=== PATIENT | female | born 1945 | race Caucasian/White ===

== ENCOUNTER → 2017-07-12 | Outpatient (CLI) | payer MEDICARE, BC ==
[~2017-07-12] MED LIST: ANTIFUNGAL2% TP; ASPIRIN 81M81 MG/TA2 PO; CALTRATE 600+D1 TAB PO; DUO-KAPS1 CAP PO
== END ==
LOC: MC.RAD 07:11
DX: Z12.31 Encounter for screening mammogram for malignant neoplasm of breast (principal)

== ENCOUNTER → 2019-08-25 | Outpatient (CLI) | payer MEDICARE, BC | LOC: MC.RAD 14:30 | DX: Z12.31 Encounter for screening mammogram for malignant neoplasm of breast (principal) ==

== ENCOUNTER → 2020-08-26 | Outpatient (CLI) | payer MEDICARE, BC | LOC: MC.RAD 07:00 | DX: Z12.31 Encounter for screening mammogram for malignant neoplasm of breast (principal) ==

== ENCOUNTER 2021-08-26 09:28 | Emergency (ER) | payer MEDICARE, BC ==
[~2021-08-26] VITALS: Ht 160 cm; Wt 52.3 kg
[2021-08-26 09:36] VITALS: TEMP 97.8
[2021-08-26 10:43] LABS: BASO # 0.1 (0.0-0.2); BASO % 0.8 % (0.0-2.0); EOS # 0.4 (0.0-0.7); EOS % 7.2 % (0-4.0); GRAN # 4.4 (1.4-6.5); GRAN % 71.6 % (42.2-75.2); HEMOGLOBIN 12.4 g/dl (12.5-16.0); LYMPH # 0.9 (1.2-3.4); LYMPH % 14.4 % (20.0-51.0); MEAN CELL VOLUME 95 fl (80.0-100.0); MEAN CORPUSCULAR HEMOGLOBIN 32 pg (27.0-31.0); MEAN CORPUSCULAR HGB CONC 34 g/dl (33.0-37.0); MEAN PLATELET VOLUME 11.6 fl (7.4-10.4); MONO # 0.4 (0.1-0.6); MONO % 5.7 % (1.7-9.3); PLATELET COUNT 151 K/mm3 (130-400); RED BLOOD COUNT 3.89 M/mm3 (4.10-5.30); REDCELL DISTRIBUTION WIDTH-CV 12.5 % (11.5-14.5)
[2021-08-26 10:44] LABS: HEMATOCRIT 36.9 % (37.0-47.0)
[2021-08-26 10:52] LABS: PROTHROMBIN TIME 11.4 SECONDS (9.7-12.8)
[2021-08-26 10:56] LABS: BILIRUBIN,TOTAL 0.5 mg/dL (0.2-1.2); CALCIUM 9.7 mg/dL (8.4-10.2); CREATININE, serum 0.82 mg/dL (0.57-1.11); POTASSIUM 4.2 mmol/L (3.5-4.5); TOTAL PROTEIN 6.6 gm/dL (6.2-8.1)
[2021-08-26 12:23] VITALS: BP 130/67; PULSE 68
== END 2021-08-26 12:35 | disposition short-term general hospital (02) ==
LOC: COL.ER 09:28
PROVIDERS: Nurse Practitioner Primary Care
DX: S52.502A Unspecified fracture of the lower end of left radius, initial encounter for closed fracture (principal); S06.6X0A Traumatic subarachnoid hemorrhage without loss of consciousness, initial encounter; S00.12XA Contusion of left eyelid and periocular area, initial encounter; W01.198A Fall on same level from slipping, tripping and stumbling with subsequent striking against other object, initial encounter; Y93.01 Activity, walking, marching and hiking

== ENCOUNTER → 2021-12-06 | Outpatient (CLI) | payer MEDICARE, BC | LOC: MC.RAD 10-19 13:00 | DX: Z12.31 Encounter for screening mammogram for malignant neoplasm of breast (principal) ==